=== PATIENT | male | born 1955 | race Caucasian/White ===

== ENCOUNTER 2017-12-05 13:23 | Day surgery (SDC) | payer BC ==
[~2017-12-05] VITALS: Ht 182.9 cm; Wt 78.8 kg
[~2017-12-05 13:23] MED LIST: CEPH500 PO; CYCL10 PO; HYDACE5 PO; IBUP800 PO; OXYACE5T PO
== END 2017-12-05 16:55 | disposition home or self-care (01) ==
LOC: ORSCSDS 13:23
PROVIDERS: Internal Medicine Gastroenterology
PROC: 0DJD8ZZ Inspection of Lower Intestinal Tract, Via Natural or Artificial Opening Endoscopic (ICD-10-PCS; principal; 2017-12-05 14:45)
DX: Z12.11 Encounter for screening for malignant neoplasm of colon (principal); Z80.0 Family history of malignant neoplasm of digestive organs; K57.30 Diverticulosis of large intestine without perforation or abscess without bleeding
CPT/HCPCS: J7120

== ENCOUNTER → 2018-11-20 | Outpatient (CLI) | payer BC | END | disposition home or self-care (01) | LOC: PLD 10:55 → LAB SHORT 10:55 | DX: D48.5 Neoplasm of uncertain behavior of skin (principal) | CPT/HCPCS: 88305 ==

== ENCOUNTER 2019-07-16 11:08 | Day surgery (SDC) | payer BC ==
[~2019-07-16] VITALS: Ht 182.9 cm; Wt 80.8 kg
[2019-07-16] MEDS ORDERED: ANACIN (11:29)
[2019-07-16] MEDS ORDERED: IBUP400 (11:30)
--- NOTE | 2019-07-16 16:05 | NUR ---
07/16/19 3415 Mona [place] WHEN PT. WOKE UP FROM ENDO, PT. WAS ASKED IF HE HAD ANY PAIN, PT. VERBALIZED HIS RIGHT SHOULDER. PER PT. HE IS HAVING SURGERY ON IT IN JULY.
== END 2019-07-16 13:30 | disposition home or self-care (01) ==
LOC: ORSCSDS 11:08
PROVIDERS: Internal Medicine Gastroenterology
PROC: 0DB58ZX Excision of Esophagus, Via Natural or Artificial Opening Endoscopic, Diagnostic (ICD-10-PCS; principal; 2019-07-16 12:30)
PROC: 0DB68ZX Excision of Stomach, Via Natural or Artificial Opening Endoscopic, Diagnostic (ICD-10-PCS; principal; 2019-07-16 12:30)
PROC: 0D758ZZ Dilation of Esophagus, Via Natural or Artificial Opening Endoscopic (ICD-10-PCS; principal; 2019-07-16 12:30)
DX: R13.14 Dysphagia, pharyngoesophageal phase (principal); K44.9 Diaphragmatic hernia without obstruction or gangrene
CPT/HCPCS: 87081; 88305; 88342; J2704; J7120

== ENCOUNTER 2020-03-19 12:59 | Day surgery (SDC) | payer BC ==
[~2020-03-19] VITALS: Ht 182.9 cm; Wt 78.8 kg
[~2020-03-19 12:59] MED LIST changes: +ANACIN; +IBUP400
== END 2020-03-19 14:33 | disposition home or self-care (01) ==
LOC: ORSCSDS 12:59
PROVIDERS: Internal Medicine Gastroenterology
PROC: 0DB58ZX Excision of Esophagus, Via Natural or Artificial Opening Endoscopic, Diagnostic (ICD-10-PCS; principal; 2020-03-19 14:15)
DX: K21.9 Gastro-esophageal reflux disease without esophagitis (principal); K44.9 Diaphragmatic hernia without obstruction or gangrene
CPT/HCPCS: 88305; J2704; J7120

== ENCOUNTER → 2021-05-04 | Outpatient (CLI) | payer BC | END | disposition home or self-care (01) | LOC: LAB 12:04 → LAB SHORT 12:04 | DX: L82.1 Other seborrheic keratosis (principal); B88.0 Other acariasis | CPT/HCPCS: 88305 ==

== ENCOUNTER → 2022-06-30 | Outpatient (CLI) | payer BC ==
[2022-07-05 13:08] LABS: M-SPIKE, % 12.4 % (Not Observed); M-SPIKE, MG/24 HR 16 mg/24 hr (Not Observed); PROTEIN,TOTAL,URINE 4.5 mg/dL (Not Estab.)
== END | disposition home or self-care (01) ==
LOC: LAB 08:30 → LAB SHORT 08:30 → LAB FUT 06-28 15:35 → EDSTATUS 06-28 15:35
PROVIDERS: Family Medicine
DX: D47.2 Monoclonal gammopathy (principal)
CPT/HCPCS: 81050; 84166; 86335

== ENCOUNTER → 2023-07-06 | Outpatient (CLI) | payer BC ==
[2023-07-06 12:54] LABS: Adenovirus F 40/41 Not Detected (NOT DETECT); Astrovirus Not Detected (NOT DETECT); Campylobacter Sp Not Detected (NOT DETECT); Cryptosporidium Not Detected (NOT DETECT); Cyclospora Cayetanensis Not Detected (NOT DETECT); E. Coli O157 Not Detected (NOT DETECT); Entamoeba Histolytica Not Detected (NOT DETECT); Enteroaggregative E. coli-EAEC Not Detected (NOT DETECT); Enteropathogenic E. coli-EPEC Not Detected (NOT DETECT); Enterotoxigenic E. coli-ETEC Not Detected (NOT DETECT); Giardia Lamblia Not Detected (NOT DETECT); Norovirus GI/GII Not Detected (NOT DETECT); Plesiomonas Shigelloides Not Detected (NOT DETECT); Rotavirus A Not Detected (NOT DETECT); Salmonella Sp Not Detected (NOT DETECT); Sapovirus Not Detected (NOT DETECT); Shiga Toxin-prod E. coli-STEC Not Detected (NOT DETECT); Shigella/Enteroin E. coli-EIEC Not Detected (NOT DETECT); Vibrio Cholerae Not Detected (NOT DETECT); Vibrio Sp Not Detected (NOT DETECT); Yersinia Enterocolitica Not Detected (NOT DETECT)
== END | disposition home or self-care (01) ==
LOC: LAB 10:01 → LAB SHORT 10:01
PROVIDERS: Family Medicine
DX: R19.7 Diarrhea, unspecified (principal)
CPT/HCPCS: 87507

== ENCOUNTER → 2023-07-19 | Outpatient (CLI) | payer BC ==
[2023-07-21 00:19] LABS: CALPROTECTIN,FECAL 114 ug/g (<=49)
== END ==
LOC: LAB 14:17 → LAB SHORT 14:17
PROVIDERS: Family Medicine
DX: R19.7 Diarrhea, unspecified (principal)
CPT/HCPCS: 83993

== ENCOUNTER 2023-08-29 09:40 | Day surgery (SDC) | payer MEDICARE, OTHER ==
[~2023-08-29] VITALS: Ht 182.9 cm; Wt 76.2 kg
[~2023-08-29 09:40] MED LIST changes: +AIRBORNE PO; +Apple Cider Vi300 MG PO; +Aspir 8181 MG PO; +CRANBERRY500 M1 PO; +DHEA50 M2 PO; +LOPE2C PO; +MAGNESIUM250 MG PO; +OMEP20ER PO; +TAMS.4ER PO; +TURMERIC500 M2 PO; +Vitamin D1000 UNI1 PO
[2023-08-29 13:04] VITALS: BP 109/79
--- NOTE | 2023-08-29 13:06 | NUR ---
08/29/23 1306 Dipika Zavaleta IV, DC'D AT 1245 WNL, CATH INTACT. PT TOLERATED WELL.SITE WRAPPED IN [place].
== END 2023-08-29 12:50 | disposition home or self-care (01) ==
LOC: ORSCSDS 09:40
PROVIDERS: Internal Medicine Gastroenterology
PROC: 0DBE8ZX Excision of Large Intestine, Via Natural or Artificial Opening Endoscopic, Diagnostic (ICD-10-PCS; principal; 2023-08-29 11:15)
DX: R19.7 Diarrhea, unspecified (principal); K52.832 Lymphocytic colitis; K57.30 Diverticulosis of large intestine without perforation or abscess without bleeding; Z86.010 Personal history of colon polyps; Z80.0 Family history of malignant neoplasm of digestive organs; Z79.82 Long term (current) use of aspirin; Z79.899 Other long term (current) drug therapy
CPT/HCPCS: 88305; J2704; J7120